=== PATIENT | female | born 1975 | race Caucasian/White ===

== ENCOUNTER 2019-06-06 19:23 | Inpatient (IN) ==
--- NOTE | 2019-06-06 20:06 | PROVIDER DOCUMENTATION ---
HPI-Psychological Disorder - General Chief Complaint: Psych-High Risk Stated Complaint: PSYCH Time Seen by Provider: 06/06/19 19:44 Source: patient, family Allergies/Adverse Reactions: Patient Allergies Allergy/AdvReac Type Severity Reaction Status Date / Time Penicillins Allergy Severe SWELLING Verified 06/06/19 21:55 Home Medications: Home Medication List Medication Instructions Recorded Confirmed Last Taken Type Lisinopril 1 tab PO DAILY 06/06/19 06/06/19 Unknown History - History of Present Illness-Psych Nature of Presenting Problem: Patient is here with a male relative stating she has increased her drinking habit lately as a way of coping with stress. She is concerned that she might hurt herself by doing that. She reports a hx of Anxiety/depression. Her pcp does not believe in medication and she has been seeing a psychologist and therapy has not been effective. She thinks of several ways to hurt herself daily but does not want her kids to see her in the different ways she has been thinking a bout. She could not give specifics on this. She had made 3 attempts at ending her life as a teenager. Onset/Duration: reports: other (anxiety/ depression) Timing: reports: still present Situational problems related to:: reports: N/A Psychiatric Complaints: reports: anxiety, depressed Substance Use: reports: denies - Suicidal Ideation Suicide Risk Assessment: depressed, prior attempt Review of Systems - Adult - REVIEW OF SYSTEMS - ADULT Constitutional: reports: no symptoms reported Eyes: reports: no symptoms reported Ears, Nose, Mouth & Throat: reports: no symptoms reported Cardiovascular: reports: no symptoms reported Respiratory: reports: no symptoms reported Gastrointestinal: reports: no symptoms reported Genitourinary: reports: no symptoms reported Musculoskeletal: reports: no symptoms reported Integumentary: reports: no symptoms reported Neurological: reports: no symptoms reported Psychiatric: reports: see HPI, anxiety, alcohol/drug dependence, depression, suicidal thoughts. denies: anti-depressant use Endocrine: reports: no symptoms reported Hematologic/Lymphatic: reports: no symptoms reported Allergic/Immunologic: reports: no symptoms reported All Other Systems: Reviewed and Negative Past History - Adult - PAST MEDICAL HISTORY-ADULT Review of Records: reports: Nursing Assessment Review, Medications Reviewed, Social history reviewed & non-contributory. Major Childhood Illnesses: reports: denies history Cardiovascular: reports: HTN Respiratory: reports: asthma Gastrointestinal: reports: hepatitis (alcoholic) Obstetrical/Gynecological: reports: ovarian cysts (bilateral) Genitourinary: reports: denies history Musculoskeletal: reports: denies history Neurological: reports: denies history Psychiatric: reports: anxiety, depression Endocrine/Immune: reports: anemia Other Conditions: reports: denies history - PRIOR SURGERIES/PROCEDURES Surgical/Procedure History: reports: other (ovarian cysts removed, breast cyst removed) - IMMUNIZATION STATUS Childhood Immunizations: See Nurse Assessment Flu Vaccine: See Nurse Assessment - FAMILY HISTORY Family History: reviewed, not pertinent - SOCIAL HISTORY Smoking: cigarettes Substance Use: alcohol Alcohol Use Frequency: every day Living Situation: family Physical Exam-Psych Focus - Physical Exam-Psych Initial Vital Signs Reviewed: Yes Appearance: appropriate appearance, appropriate insight, no apparent distress, other (does not appear happy) Neurological: alert, calm, depressed affect Behavior/Eye Contact/Speech: cooperative, normal speech Thoughts/Hallucinations: normal thought pattern HENMT: normocephalic/atraumatic, moist mucous membranes Neck: non-tender, full range of motion, supple, Brudzinski's sign Respiratory: lungs clear Cardiovascular: regular rate, rhythm, no edema Abdominal Exam: normal bowel sounds, non tender, soft Back Exam: normal inspection, no CVA tenderness Extremity: normal range of motion, non-tender Integumentary: normal color Progress - PLAN OF CARE/RESULTS Progress/Plan/Lab Results: Vital Signs - 8 hr 06/08/19 11:30 06/08/19 14:08 06/08/19 15:09 Temperature 98.6 F 98.9 F Pulse Rate 93 H 82 Respiratory Rate 17 18 Blood Pressure 155/102 199/103 192/93 O2 Sat by Pulse Oximetry 98 100 Laboratory Results - last 24 hr 06/07/19 18:42 Plasma/Serum Ethyl Alc Orders Category Date Time Status Consult for Inpt Psych Tx As Directed Care 06/06/19 19:32 Active Initiate Psych Med Clear.Mariah As Directed Care 06/06/19 19:32 Active Regular Diet Diet 06/07/19 06:55 Completed Regular Diet Diet 06/07/19 17:14 Active ALCOHOL BLOOD Routine Lab 06/07/19 05:53 Completed ALCOHOL BLOOD Stat Lab 06/06/19 19:57 Completed ALCOHOL BLOOD Stat Lab 06/07/19 09:57 Completed ALCOHOL BLOOD Stat Lab 06/07/19 18:42 Completed CBC WITH ELECTRONIC DIFF [HEME] Stat Lab 06/06/19 19:57 Completed COMPREHENSIVE METABOLIC PANEL [CHEM] Stat Lab 06/06/19 19:57 Completed FREE T4 Stat Lab 06/06/19 19:57 Completed TSH Stat Lab 06/06/19 19:57 Completed URINALYSIS W/POSS RFLX CULT [URINALYSIS] Stat Lab 06/06/19 20:00 Completed URINE DRUG SCREEN Stat Lab 06/06/19 20:00 Completed VITAMIN B12 Stat Lab 06/06/19 19:57 Completed Acetaminophen [Tylenol] Med 06/08/19 09:07 Discontinued 650 mg PO NOW ONE Clonidine [Catapres] Med 06/08/19 14:27 Discontinued 0.2 mg PO NOW ONE Diphenhydramine [Benadryl] Med 06/07/19 18:25 Discontinued 25 mg PO NOW ONE LISINOpril [Prinivil] Med 06/07/19 08:00 Discontinued 10 mg PO NOW ONE LISINOpril [Prinivil] Med 06/08/19 13:44 Discontinued 10 mg PO NOW ONE LISINOpril [Prinivil] Med 06/08/19 14:27 Discontinued 10 mg PO NOW ONE LISINOpril [Prinivil] Med 06/08/19 21:00 Discontinued 20 mg PO BID LISINOpril [Prinivil] Med 06/09/19 09:00 Active 20 mg PO DAILY Lorazepam [Ativan] Med 06/07/19 18:25 Discontinued 1 mg PO NOW ONE Lorazepam [Ativan] Med 06/08/19 14:28 Discontinued 1 mg PO NOW ONE Nicotine Patch [Nicoderm Patch] Med 06/06/19 23:01 Discontinued 21 mg TD NOW ONE Nicotine Patch [Nicoderm Patch] Med 06/07/19 18:26 Discontinued 21 mg TD NOW ONE Promethazine [Phenergan] Med 06/07/19 18:25 Discontinued 25 mg IM NOW ONE Psychiatric Clearance (Initial) Stat Oth 06/06/19 19:32 Ordered Patient has elevated blood alcohol level of 350, mildly elevated AST, hematuria without abdominal pain, urinary symptoms. Patient is cleared for psych evaluation Result Diagrams: 06/06/19 19:57 06/06/19 19:57 - REASSESSMENT Reassessment #1 Time Reassessed: 08:01 Status: improving (SOBERING UP, 0600 ALC 160, EATING BREAKFAST, NO SLURRED SPEECH. LIKES VODKA STRAIGHT.) Reassessment #2 Time Reassessed: 18:29 Status: other (vomiting x 2, tremors and agitation. needs to smoke. O X3. clear speech.) Reassessment #3 Time Reassessed: 11:40 Status: improving (NOW W/O VOMITING OR AGITATION. AGAIN ORDERING LISINOPRIL FOR HTN. MEDICALLY CLEARED FOR PSYCH ADMISSION AT THIS TIME.-Calin NAJREA MD) Reassessment #4 Time Reassessed: 14:29 Status: improving (THIS PT IS MEDICALLY CLEARED FOR PSYCH ADMISSION. HERE MILD ELEVATION OF BP COULD BE TREATED IN A PSYCH UNIT OR EVEN AT HOME!. HER PSYCH DISPOSITON SHOULD NOT BE WITH-HELD WE CONTINUE TO TREAT HER HYPERTENSION AND HER FRUSTRATION AND ANXIETY WELL.- MD MAGDIEL) - PSYCHIATRIC Medically clear for psych eval and/or transfer to IP bed.: Yes - CONSULTS/PCP/HOSPITALIST Notification #1 *Consult/PCP/Hospitalist*: dr milly Pina Time Discussed: 15:35 Consult Disposition: other ('transfer' to [address] program accepted by dr Pina.) - CHANGE OF SHIFT REPORT (ED Provider) 1 Report Given and Care Transferred to:: Dr Acosta Time of Transfer: 02:05 Items Pending: Other (psych eval) 2 Report Given and Care Transferred to:: Dr Najera Time of Transfer: 07:00 Items Pending: Physician Consult/Arrival 3 Report Given and Care Transferred to:: Dr Begum Time of Transfer: 19:00 Departure - Departure Date of Disposition Decision: 06/07/19 Time of Disposition Decision: 21:24 DIAGNOSIS: Suicidal ideation, Alcohol abuse Hypertension Qualifiers: Hypertension type: essential hypertension Qualified Code(s): I10 - Essential (primary) hypertension Disposition: PSYCHIATRIC HOSPITAL/[facility] Certified Medical Emergency: Emergent Condition: Stable Referrals and Follow-Ups: Noemí Panda MD [Primary Care Provider] - Discharge Education: Steps to Quit Smoking, [id number] - Critical Care Note This patient required my direct & personal management of CC.: Yes Total Time (mins): 35 Critical Care Statement: This patient required my direct personal management to treat or rule out processes, the absence of which, could potentiallly result in sudden, clinically significant life or limb threatening deterioration. Comments: intermittent management required past 44 hours including hypertension and anxiolytic medications, phone calls and consultlations with mental health providers and physicians.-RWS Attestation - Physician/ CHRIS Attestation Patient care was provided by Advanced Practice Provider:: No The physician spent face to face time with patient:: Yes Advanced Practice Provider documentation review:: Supervising physician onsite and consulted in the evaluation and care of this patient. The physician did have a face to face encounter with the patient.
[2019-06-06 20:12] LABS: URINE SOURCE CLEAN CATCH
[2019-06-06 20:19] LABS: BASO# 0.11 X1000 (0.0-0.2); BASO% 1.6 % (0.0-0.8); EOS# 0.07 X1000 (0.0-0.7); HEMATOCRIT 45.6 % (37.0-47.0); HEMOGLOBIN 15.4 g/dL (12.0-16.0); LYMPH# 3.01 X1000 (1.2-3.4); LYMPH% 44.3 % (20.5-51.1); MCH 33.7 PG (27-31); MCHC 33.8 g/dL (33-37); MCV 99.8 FL (81-99); MONO# 0.69 X1000 (0.11-0.59); MONO% 10.1 % (1.7-9.3); MPV 9.6 FL (7.4-10.4); NEUT# 2.92 X1000 (1.4-6.5); PLT 256 X1000 (130-400); RBC 4.57 XMIL (4.2-5.4); RDW 12.6 % (11.5-14.5)
[2019-06-06 20:20] LABS: BILIRUBIN URINE NEGATIVE (NEGATIVE); BLOOD URINE MODERATE (NEGATIVE); COLOR STRAW; GLUCOSE URINE NEGATIVE (NEGATIVE); KETONE URINE NEGATIVE (NEGATIVE); LEUKOCYTES URINE NEGATIVE (NEGATIVE); NITRITE URINE NEGATIVE (NEGATIVE); PH URINE 7.5; PROTEIN URINE NEGATIVE (NEGATIVE); SP GRAVITY URINE 1.008; TURBIDITY URINE CLEAR (CLEAR); UROBILINOGEN URINE NORMAL (NORMAL)
[2019-06-06 20:22] LABS: UR EPITHELIAL CELLS <10 /HPF (<10); URINE BACTERIA NEGATIVE /HPF; URINE WBC <10 /HPF (<10)
[2019-06-06 20:35] LABS: UR AMPHETAMINES QUAL NONE DETECTED (NONE DETECT); UR BARBITUATES QUAL NONE DETECTED (NONE DETECT); UR BENZODIAZEPIN QUAL NONE DETECTED (NONE DETECT); UR CANNABINOIDS QUAL NONE DETECTED (NONE DETECT); UR COCAINE QUAL NONE DETECTED (NONE DETECT); UR METHADONE QUAL NONE DETECTED (NONE DETECT); UR OPIATES QUAL NONE DETECTED (NONE DETECT); UR OXYCODONE QUAL NONE DETECTED (NONE DETECT); UR PCP QUAL NONE DETECTED (NONE DETECT)
[2019-06-06 20:46] LABS: AGAP 14; ALB/GLOB RATIO 1.3; ALBUMIN 4.1 g/dL (3.5-5.0); ALKALINE PHOSPHATASE 73 U/L (32-104); BUN 7 mg/dL (8-22); CALCIUM 8.6 mg/dL (8.8-10.2); CHLORIDE 102 mmol/L (98-107); COSMO 286; CREATININE 0.5 mg/dL (0.5-0.9); ESTIMATED GFR > 60; GLUCOSE 155 mg/dL (70-104); GOT 39 U/L (10-30); GPT 22 U/L (10-36); POTASSIUM 3.4 mmol/L (3.5-5.1); SODIUM 143 mmol/L (136-145); TCO2 27 mmol/L (25-35); TOTAL BILIRUBIN 0.24 mg/dL (0.20-1.00); TOTAL PROTEIN 7.2 g/dL (6.3-8.3)
[2019-06-06 21:06] LABS: FREE T4 1.05 ng/dL (0.93-1.70); TSH 1.09 uIUmL (0.27-4.20)
[2019-06-06] MEDS ORDERED: NICODERM PATCH TD ONE (23:01)
[2019-06-07] MEDS ORDERED: PRINIVIL PO ONE (08:00)
[2019-06-07] MEDS ORDERED: ATIVAN PO ONE (18:25)
[2019-06-07] MEDS ORDERED: PHENERGAN IM ONE (18:25)
[2019-06-07] MEDS ORDERED: BENADRYL PO ONE (18:25)
[2019-06-07] MEDS ORDERED: NICODERM PATCH TD ONE (18:26)
[2019-06-08] MEDS ORDERED: TYLENOL PO ONE (09:07)
[2019-06-08] MEDS ORDERED: PRINIVIL PO ONE ×2 (13:44→14:27)
[2019-06-08] MEDS ORDERED: CATAPRES PO ONE (14:27)
[2019-06-08] MEDS ORDERED: ATIVAN PO ONE (14:28)
[2019-06-08] MEDS ORDERED: IMODIUM PO PRN (18:21)
[2019-06-08] MEDS ORDERED: DESYREL PO PRN (18:21)
[2019-06-08] MEDS ORDERED: SENOKOT PO PRN (18:21)
[2019-06-08] MEDS ORDERED: PHENOBARBITAL IV PRN (18:21)
[2019-06-08] MEDS ORDERED: TYLENOL PO PRN (18:21)
[2019-06-08] MEDS ORDERED: BENTYL PO PRN (18:21)
[2019-06-08] MEDS ORDERED: DULCOLAX PR PRN (18:21)
[2019-06-08] MEDS ORDERED: TUBERSOL ID ONE (18:21)
[2019-06-08] MEDS ORDERED: D5W 1,000 ML IV PRN (18:21)
[2019-06-08] MEDS ORDERED: MAALOX PLUS LIQUID PO PRN (18:21)
[2019-06-08] MEDS ORDERED: SALINE LOCK IV FLUID XX ONE (18:31)
[2019-06-08] MEDS ORDERED: ZOFRAN ODT PO PRN (18:31)
[2019-06-08] MEDS ORDERED: ZOFRAN IV PRN (18:31)
[2019-06-08] MEDS ORDERED: APRESOLINE IV PRN (18:33)
[2019-06-08] MEDS ORDERED: FLU VACCINE IM ONE (18:46)
[2019-06-08] MEDS ORDERED: PNEUMOVAX 23 IM ONE (18:46)
[2019-06-08 18:51] LABS: HEMATOCRIT 43.6 % (37.0-47.0); HEMOGLOBIN 14.7 g/dL (12.0-16.0); MCH 33.3 PG (27-31); MCHC 33.7 g/dL (33-37); MCV 98.9 FL (81-99); MPV 9.6 FL (7.4-10.4); RBC 4.41 XMIL (4.2-5.4); RDW 11.8 % (11.5-14.5); WBC 5.25 X1000 (4.8-10.8)
[2019-06-08] MEDS: LIBRIUM PO SCH (18:55)
[2019-06-08 19:04] LABS: INR 0.99; PROTIME 13.6 Seconds (11.0-16.0)
[2019-06-08 19:15] LABS: AMYLASE 106 U/L (20-200); LIPASE 157 U/L (13-60)
[2019-06-08 19:34] LABS: AGAP 16; ALKALINE PHOSPHATASE 139 U/L (32-104); BUN 9 mg/dL (8-22); CALCIUM 8.7 mg/dL (8.8-10.2); CHLORIDE 98 mmol/L (98-107); COSMO 279; CREATININE 0.5 mg/dL (0.5-0.9); ESTIMATED GFR > 60; GLUCOSE 207 mg/dL (70-104); GOT 904 U/L (10-30); GPT 195 U/L (10-36); POTASSIUM 3.6 mmol/L (3.5-5.1); SODIUM 137 mmol/L (136-145); TCO2 23 mmol/L (25-35); TOTAL PROTEIN 6.7 g/dL (6.3-8.3)
[2019-06-08] MEDS ORDERED: PRINIVIL PO SCH (21:00)
[2019-06-08] MEDS: NICOTINE GUM BUCCAL PRN (22:31)
[2019-06-09] MEDS: LIBRIUM PO SCH ×4 (00:50→18:51)
[2019-06-09] MEDS: PROTONIX PO SCH (06:38)
[2019-06-09] MEDS ORDERED: M.V.I.-12 10 ML, FOLIC ACID 1 MG, MAGNESIUM SULFATE 1 GM, THIAMINE 100 MG in NS 1,000 ML IV ONE (09:00)
[2019-06-09] MEDS ORDERED: PRINIVIL PO SCH (09:00)
[2019-06-09] MEDS: VITAMIN B-1 PO SCH (09:33)
[2019-06-09] MEDS: FOLIC ACID PO SCH (09:33)
[2019-06-09] MEDS: PRINIVIL PO SCH (09:33)
[2019-06-09] MEDS: THERA M PLUS PO SCH (09:33)
[2019-06-09] MEDS: NICODERM PATCH TD PRN (13:10)
[2019-06-09] MEDS: ROBAXIN PO PRN (17:13)
[2019-06-09] MEDS: ATARAX PO PRN (20:17)
[2019-06-09] MEDS: SEROQUEL PO PRN (20:17)
[2019-06-09] MEDS: MOTRIN PO PRN (20:17)
--- NOTE | 2019-06-09 21:22 | PROGRESS NOTE ---
DATE: 06/09/2019 SUBJECTIVE: Patient notes that she is starting to feel a little bit better, less muscle aches, less tremors. Denies any fevers or chills. Denies headaches, blurred vision. PHYSICAL EXAMINATION: Vital Signs: Reviewed. General: She is awake, alert. She is in no distress. HEENT: Normocephalic. Neck: Supple. Cardiovascular: Regular rate. Chest: Clear. Abdomen: Soft. Extremities: Moves all extremities. ASSESSMENT: 1. Acute transaminitis. Her liver function tests are actually normal. When she initially presented to the emergency room, they were elevated. We will continue to follow. 2. Acute alcohol withdrawal. 3. Nausea and vomiting. 4. Abdominal pain. 5. Myalgias. 6. Paresthesias. PLAN: We will continue patient in the hospital. Will continue to follow. Continue counseling. cc: Camacho Pina MD
[2019-06-10 05:43] LABS: HEMATOCRIT 38.5 % (37.0-47.0); HEMOGLOBIN 12.9 g/dL (12.0-16.0); MCH 33.4 PG (27-31); MCHC 33.5 g/dL (33-37); MCV 99.7 FL (81-99); MPV 10.5 FL (7.4-10.4); RBC 3.86 XMIL (4.2-5.4); WBC 3.58 X1000 (4.8-10.8)
[2019-06-10] MEDS: LIBRIUM PO SCH ×4 (05:56→18:26)
[2019-06-10 06:00] LABS: AGAP 11; ALBUMIN 3.5 g/dL (3.5-5.0); ALKALINE PHOSPHATASE 142 U/L (32-104); BUN 7 mg/dL (8-22); CALCIUM 8.7 mg/dL (8.8-10.2); CHLORIDE 107 mmol/L (98-107); COSMO 281; CREATININE 0.4 mg/dL (0.5-0.9); ESTIMATED GFR > 60; GLUCOSE 129 mg/dL (70-104); GOT 245 U/L (10-30); GPT 175 U/L (10-36); MAGNESIUM 1.9 mg/dL (1.5-2.7); POTASSIUM 3.2 mmol/L (3.5-5.1); SODIUM 141 mmol/L (136-145); TCO2 22 mmol/L (25-35); TOTAL PROTEIN 6.3 g/dL (6.3-8.3)
[2019-06-10] MEDS: PROTONIX PO SCH (06:07)
[2019-06-10] MEDS ORDERED: KLOR-CON PO ONE (06:56)
[2019-06-10] MEDS: THERA M PLUS PO SCH ×2 (07:48→08:16)
[2019-06-10] MEDS: VITAMIN B-1 PO SCH ×2 (07:48→08:16)
[2019-06-10] MEDS: PRINIVIL PO SCH ×2 (07:48→08:16)
[2019-06-10] MEDS: ROBAXIN PO PRN ×2 (07:48→20:29)
[2019-06-10] MEDS: FOLIC ACID PO SCH ×2 (07:48→08:16)
[2019-06-10] MEDS: NICODERM PATCH TD PRN (12:53)
[2019-06-10] MEDS: ATARAX PO PRN (15:59)
[2019-06-10] MEDS: MOTRIN PO PRN (20:29)
[2019-06-10] MEDS: SEROQUEL PO PRN (20:29)
--- NOTE | 2019-06-10 21:45 | PROGRESS NOTE ---
DATE: 06/10/2019 SUBJECTIVE: Patient notes that she is feeling better. She is still having some muscle aches. Overall, does not feel well, but better than at admission. She denies any suicidal ideations currently. States she has no desire to harm herself. PHYSICAL EXAMINATION: General: Reviewed patient is awake, alert. She is in no current respiratory distress. Vital signs: She is afebrile. Temperature 98 degrees, pulse 90, respiratory 20, BP is stable. HEENT: Normocephalic. Neck: Supple. Cardiovascular: Regular rate. Chest: Clear, nonlabored. Abdomen: Soft, nondistended. Extremities: Moves all extremities. Neurologic: No changes. ASSESSMENT: 1. Nausea and vomiting. 2. Abdominal pain. 3. Myalgias. 4. Paresthesias. 5. Paroxysmal sweating. 6. Alcohol abuse withdrawal and stabilization. 7. Chronic depression without suicide ideations. PLANS: At this point, we are going to take her off 1 on 1 as she is not suicidal. She has also been cleared by Chucho Mandujano. We are going to continue Librium taper, continue to follow. Further orders as needed. cc: Camacho Pina MD
[2019-06-11] MEDS: LIBRIUM PO SCH ×4 (01:21→21:46)
[2019-06-11 05:24] LABS: HEMATOCRIT 38.7 % (37.0-47.0); HEMOGLOBIN 12.5 g/dL (12.0-16.0); MCH 32.8 PG (27-31); MCHC 32.3 g/dL (33-37); MCV 101.6 FL (81-99); MPV 10.9 FL (7.4-10.4); RBC 3.81 XMIL (4.2-5.4); RDW 12.4 % (11.5-14.5); WBC 4.55 X1000 (4.8-10.8)
[2019-06-11 06:01] LABS: AGAP 13; ALBUMIN 3.9 g/dL (3.5-5.0); ALKALINE PHOSPHATASE 137 U/L (32-104); BUN 5 mg/dL (8-22); CHLORIDE 107 mmol/L (98-107); COSMO 284; CREATININE 0.5 mg/dL (0.5-0.9); ESTIMATED GFR > 60; GLUCOSE 171 mg/dL (70-104); GOT 95 U/L (10-30); GPT 139 U/L (10-36); MAGNESIUM 1.7 mg/dL (1.5-2.7); POTASSIUM 3.4 mmol/L (3.5-5.1); SODIUM 142 mmol/L (136-145); TCO2 22 mmol/L (25-35); TOTAL PROTEIN 6.9 g/dL (6.3-8.3)
[2019-06-11] MEDS: PROTONIX PO SCH (06:07)
[2019-06-11] MEDS ORDERED: LINZESS PO ONE (08:31)
[2019-06-11] MEDS: PRINIVIL PO SCH (09:13)
[2019-06-11] MEDS: VITAMIN B-1 PO SCH (09:13)
[2019-06-11] MEDS: ROBAXIN PO PRN (09:13)
[2019-06-11] MEDS: MOTRIN PO PRN (09:13)
[2019-06-11] MEDS: FOLIC ACID PO SCH (09:14)
[2019-06-11] MEDS: THERA M PLUS PO SCH (09:14)
[2019-06-11] MEDS: SEROQUEL PO PRN (21:47)
--- NOTE | 2019-06-12 01:07 | PROGRESS NOTE ---
DATE: 06/11/2019 SUBJECTIVE: Patient notes that she feels bad, but does admit that she feels better than on admission. She continues to deny any suicidal ideations. PHYSICAL EXAMINATION: Vital Signs: Temperature 98 degrees, pulse 96, respiratory 18, BP 109/69. General: Patient is pleasant, currently in no respiratory distress, sitting up on the side of bed. HEENT: Normocephalic. Neck: Supple. Cardiovascular: Regular rate. Chest: Clear. Abdomen: Soft, nondistended. Extremities: Moves all extremities. Neurologic: No changes. ASSESSMENT: 1. Nausea and vomiting. 2. Abdominal pain. 3. Tremors. 4. Myalgias. 5. Paresthesias. 6. Alcohol abuse, withdrawal and stabilization. PLAN: We will continue to wean Librium, continue counseling as tolerated and we will follow. cc: Camacho Pina MD
[2019-06-12] MEDS: LIBRIUM PO SCH ×3 (06:17→18:28)
[2019-06-12] MEDS: PROTONIX PO SCH (06:17)
[2019-06-12] MEDS: FOLIC ACID PO SCH (10:49)
[2019-06-12] MEDS: PRINIVIL PO SCH (10:49)
[2019-06-12] MEDS: VITAMIN B-1 PO SCH (10:50)
[2019-06-12] MEDS: THERA M PLUS PO SCH (10:50)
[2019-06-12 11:25] LABS: HEPATITIS PROFILE ACUTE SEE COMMENTS
[2019-06-12] MEDS: ROBAXIN PO PRN ×2 (11:58→21:05)
[2019-06-12] MEDS: ATARAX PO PRN ×2 (11:58→21:06)
[2019-06-12] MEDS: MOTRIN PO PRN ×2 (11:58→21:05)
[2019-06-12] MEDS: NICOTINE GUM BUCCAL PRN (13:38)
[2019-06-12] MEDS: SEROQUEL PO PRN (21:05)
[2019-06-12] MEDS: NICODERM PATCH TD PRN (21:06)
[2019-06-13] MEDS: LIBRIUM PO SCH ×4 (00:16→17:29)
--- NOTE | 2019-06-13 01:31 | PROGRESS NOTE ---
DATE: 06/12/2019 SUBJECTIVE: Patient with no new complaints. States she is starting to feel a little bit better although still having some muscle aches. PHYSICAL EXAMINATION: Vital Signs: Temperature 97.4 degrees, pulse 64, respiratory 22, BP 125/69. General: Patient is awake, pleasant, in no distress. HEENT: Normocephalic. Neck: Supple. Cardiovascular: Regular rate. Chest: Clear. Abdomen: Soft. Extremities: Moves all extremities. ASSESSMENT: 1. Acute transaminitis. AST and ALT continue to improve. 2. Nausea and vomiting. 3. Abdominal pain. 4. Tremors. 5. Myalgias. 6. Paresthesias. 7. Paroxysmal sweating. 8. Alcohol abuse, withdrawal and stabilization. PLAN: We will continue patient in the hospital. Continue to wean Librium. Continue counseling. Further orders as needed. cc: Camacho Pina MD
[2019-06-13] MEDS: PROTONIX PO SCH (06:31)
[2019-06-13] MEDS: FOLIC ACID PO SCH (08:26)
[2019-06-13] MEDS: THERA M PLUS PO SCH (08:26)
[2019-06-13] MEDS: PRINIVIL PO SCH (08:26)
[2019-06-13] MEDS: VITAMIN B-1 PO SCH (08:26)
[2019-06-13] MEDS: MOTRIN PO PRN (12:28)
[2019-06-13] MEDS: ATARAX PO PRN (20:34)
--- NOTE | 2019-06-13 21:10 | PROGRESS NOTE ---
DATE: 06/13/2019 SUBJECTIVE: The patient notes overall, she is starting to feel better. Denies any fevers, chills. Denies cough, congestion. PHYSICAL EXAMINATION: Vital Signs: Reviewed patient is awake, alert. She is in no respiratory distress. HEENT: Normocephalic. Neck: Supple. Cardiovascular: Regular rate. Chest: Clear, nonlabored. Abdomen: Soft, nondistended. Extremities: Moves all extremities. Neurologic: No changes. ASSESSMENT: 1. Nausea and vomiting. 2. Abdominal pain. 3. Myalgias. 4. Paresthesias. 5. Paroxysmal sweating. 6. Polysubstance use and abuse. PLAN: We are going to continue the patient in the hospital. Continue to wean Librium. Continue counseling. Hopefully, she can transition to long-term rehab soon. cc: Camacho Pina MD
[2019-06-14] MEDS: PROTONIX PO SCH (06:18)
[2019-06-14] MEDS: THERA M PLUS PO SCH (09:06)
[2019-06-14] MEDS: MOTRIN PO PRN (09:07)
[2019-06-14] MEDS: FOLIC ACID PO SCH (09:07)
[2019-06-14] MEDS: PRINIVIL PO SCH (09:07)
[2019-06-14] MEDS: LIBRIUM PO SCH ×2 (09:07→20:30)
[2019-06-14] MEDS: VITAMIN B-1 PO SCH (09:07)
[2019-06-14] MEDS: ATARAX PO PRN (16:28)
--- NOTE | 2019-06-14 21:30 | PROGRESS NOTE ---
DATE: 06/14/2019 SUBJECTIVE: Patient notes that she is feeling fine, denies any current issues. PHYSICAL: Vital signs reviewed. She is awake, alert. She is in no current distress. Temperature 97 degrees, pulse 87, respiratory 18, BP 132/77.General: Patient is pleasant. HEENT: Normocephalic. Neck: Supple. CV: Regular rate. Chest: Clear. Abdomen: Soft. Extremities: Moves all extremities. ASSESSMENT: 1. Nausea, vomiting. 2. Abdominal pain. 3. Myalgias . 4. Paresthesias. 5. Paroxysmal sweating. 6. Alcohol abuse withdrawal and stabilization. PLAN: Continue patient in the hospital, wean Librium little bit further. Hopefully to rehab soon. cc: Camacho Pina MD
[2019-06-15] MEDS: PROTONIX PO SCH ×2 (05:51→06:02)
[2019-06-15] MEDS: ROBAXIN PO PRN (05:54)
[2019-06-15 07:44] VITALS: BP 122/73
[2019-06-15] MEDS: VITAMIN B-1 PO SCH (09:14)
[2019-06-15] MEDS: FOLIC ACID PO SCH (09:14)
[2019-06-15] MEDS: LIBRIUM PO SCH (09:14)
[2019-06-15] MEDS: THERA M PLUS PO SCH (09:14)
[2019-06-15] MEDS: PRINIVIL PO SCH (09:14)
[2019-06-15 09:44] LABS: HEMATOCRIT 38.3 % (37.0-47.0); HEMOGLOBIN 12.3 g/dL (12.0-16.0); MCH 33.3 PG (27-31); MCHC 32.1 g/dL (33-37); MCV 103.8 FL (81-99); RBC 3.69 XMIL (4.2-5.4); RDW 12.5 % (11.5-14.5); WBC 4.88 X1000 (4.8-10.8)
[2019-06-15 11:04] LABS: AGAP 11; CHLORIDE 106 mmol/L (98-107); SODIUM 143 mmol/L (136-145); TCO2 26 mmol/L (25-35)
[2019-06-15 11:05] LABS: ALBUMIN 3.7 g/dL (3.5-5.0); BUN 12 mg/dL (8-22); COSMO 290; CREATININE 0.6 mg/dL (0.5-0.9); GLUCOSE 189 mg/dL (70-104); TOTAL PROTEIN 6.9 g/dL (6.3-8.3)
[2019-06-15 11:06] LABS: ALKALINE PHOSPHATASE 89 U/L (32-104); GOT 25 U/L (10-30); GPT 49 U/L (10-36)
--- NOTE | 2019-06-16 10:47 | DISCHARGE SUMMARY ---
ADMISSION DATE: 06/08/2019 DISCHARGE DATE: 06/15/2019 DISCHARGE DIAGNOSIS: 1. Nausea, vomiting, resolved. 2. Abdominal pain, resolved. 3. Myalgias, resolved. 4. Paresthesias, resolved. 5. Tremors, resolved. 6. Polysubstance use and abuse. 7. Chronic anxiety depression. CONSULTATIONS: None. PROCEDURES: None. BRIEF HOSPITAL COURSE: Patient is a 43-year-old female who presented to the hospital, treated in usual fashion, placed on high-dose Librium taper, continued to follow. On discharge, she is awake, alert. She is in no distress. Overall, she is improving and therefore she will be discharged. DISPOSITION: Patient will be discharged to rehab. She currently is medically stable. TIME SPENT: Greater than 30 minutes was spent in total care. She is totally weaned off Librium while she is in the hospital. cc: Camacho Pina MD
== END 2019-06-15 13:28 | DRG 897 ==
LOC: ED 19:23 → P.MEDSURG 06-08 17:58
PROVIDERS: ADMIT Family Medicine; ATTEND Family Medicine